=== PATIENT | female | born 1960 | race Caucasian/White ===

== ENCOUNTER 2024-04-30 11:28 | Emergency (ER) | payer OTHER ==
[2024-04-30 11:38] VITALS: BP 147/82; PULSE 59; RESP 18; TEMP 98; BMI 35.2
[2024-04-30] MEDS ORDERED: ACETAMINOPHEN 500 MG TABLET (FP) ONE (12:02)
[2024-04-30] MEDS ORDERED: LIDOCAINE 4% PATCH TP ONE (12:02)
[2024-04-30] MEDS: LIDOCAINE 4% PATCH TP ONE (12:07)
[2024-04-30] MEDS: ACETAMINOPHEN 500 MG TABLET (FP) PO ONE (12:08)
[2024-04-30] MEDS ORDERED: IBUPROFEN 400 MG TABLET (FP) PO ONE (12:11)
[2024-04-30] MEDS: IBUPROFEN 400 MG TABLET (FP) PO ONE (12:12)
[2024-04-30] MEDS ORDERED: LIDOCAINE PATCH REMOVAL MC SCH (22:00)
== END 2024-04-30 14:10 | disposition home or self-care (01) ==
LOC: JERFT 11:28
DX: M54.2 Cervicalgia (principal); V49.40XA Driver injured in collision with unspecified motor vehicles in traffic accident, initial encounter; Y92.410 Unspecified street and highway as the place of occurrence of the external cause
CPT/HCPCS: 72125-TC; 99284-25